=== PATIENT | male | born 1950 | race Caucasian/White ===

== ENCOUNTER 2017-08-05 12:18 | Inpatient (IN) | payer MEDICARE, MEDICAID ==
[~2017-08-05] VITALS: Ht 172.7 cm; Wt 68.6 kg
[2017-08-05] MEDS ORDERED: NITROGLYCERIN SINGLE TAB 0.4 MG SL ONE (12:50)
[2017-08-05] MEDS ORDERED: ASPIRIN 81 MG TABLET CHEW ONE (12:50)
[2017-08-05] MEDS ORDERED: SODIUM CHLORIDE FLUSH 10ML SYR IVF ONE (13:00)
[2017-08-05] MEDS ORDERED: NITROGLYCERIN SINGLE TAB 0.4 MG SL PRN (13:00)
[2017-08-05] MEDS ORDERED: ASPIRIN 81 MG TABLET CHEW PO ONE (13:00)
[2017-08-05 13:08] LABS: BASOPHILS % (AUTO) 1 % (0-1); EOSINOPHILS % (AUTO) 1 % (1-7); LYMPHOCYTES # (AUTO) 1.94 x10^3/uL (1-3.4); LYMPHOCYTES % (AUTO) 25 % (22-44); MD NO; MEAN CORPUSCULAR HEMOGLOBIN 31.4 pg (27.5-34.5); MEAN CORPUSCULAR HGB CONC 33.3 g/dL (33.2-36.2); MEAN CORPUSCULAR VOLUME 94.1 fL (81-97); MEAN PLATELET VOLUME 10.1 fL (7.4-10.4); MONOCYTES # (AUTO) 0.43 x10^3/uL (0.2-0.8); MONOCYTES % (AUTO) 6 % (2-9); NEUTROPHILS # (AUTO) 5.21 x10^3/uL (1.8-6.8); NEUTROPHILS % (AUTO) 67 % (42-75); PLATELET COUNT 239 x10^3/uL (130-400); RED BLOOD COUNT 4.98 x10^6/uL (4.38-5.82); RED CELL DISTRIBUTION WIDTH 13.6 % (9.4-14.8)
[2017-08-05 13:20] LABS: ALANINE AMINOTRANSFERASE 21 U/L (12-78); ALBUMIN 3.9 g/dL (3.4-5.0); ANION GAP 10 mmol/L (5-15); CHLORIDE 108 mmol/L (98-107)
[2017-08-05 13:25] LABS: ALKALINE PHOSPHATASE 90 U/L (45-117); BILIRUBIN,TOTAL 0.7 mg/dL (0.2-1.0); CREATININE 0.83 mg/dL (0.7-1.3); TOTAL PROTEIN 7.6 g/dL (6.4-8.2); TROPONIN I < 0.015 ng/mL (0.000-0.045)
[2017-08-05] MEDS ORDERED: OMNIPAQUE 350 MG/ML, 100ML BOTTLE ONE (14:51)
[2017-08-05] MEDS ORDERED: ASPI-515 PO (16:11)
[2017-08-05] MEDS ORDERED: METO-95 PO (16:11)
[2017-08-05] MEDS ORDERED: GABA300C10 PO ×2 (16:11)
[2017-08-05] MEDS ORDERED: TRAM50TA2 PO (16:11)
[2017-08-05] MEDS ORDERED: NITR0.4T SL (16:11)
[2017-08-05] MEDS: ENOXAPARIN 40 MG/0.4 ML SQ SCH (16:30)
[2017-08-05] MEDS ORDERED: POLYETHYLENE GLYCOL 17 GM PACKET PO PRN (16:30)
[2017-08-05] MEDS ORDERED: LABETALOL 5MG/ML, 20ML IVPush PRN (16:30)
[2017-08-05] MEDS ORDERED: hydrALAzine 20 MG/ML, 1ML IVPush PRN (16:30)
[2017-08-05] MEDS ORDERED: NITROGLYCERIN 0.4 MG BOTTLE (25 TABS) SL PRN (16:30)
[2017-08-05 19:44] LABS: TROPONIN I < 0.015 ng/mL (0.000-0.045)
[2017-08-05] MEDS: GABAPENTIN 100 MG CAPSULE PO SCH (21:00)
[2017-08-05] MEDS ORDERED: GABAPENTIN 100 MG CAPSULE PO SCH (21:00)
[2017-08-05 21:19] VITALS: BP 135/74
[2017-08-06 01:12] VITALS: BP 107/72
[2017-08-06] MEDS: GABAPENTIN 100 MG CAPSULE PO SCH ×5 (06:17→20:40)
[2017-08-06 08:02] VITALS: BP 119/78
[2017-08-06] MEDS: ASPIRIN 81 MG TABLET EC PO SCH (08:07)
[2017-08-06] MEDS: SENNA/DOCUSATE TABLET PO SCH (08:07)
[2017-08-06] MEDS: METOPROLOL SUCCINATE 100 MG TAB.ER.24H PO SCH (08:07)
[2017-08-06] MEDS ORDERED: REGADENOSON 0.4 MG/5 ML SYRINGE ONE (09:20)
[2017-08-06 14:30] VITALS: BP 107/72
[2017-08-06] MEDS: ENOXAPARIN 40 MG/0.4 ML SQ SCH (16:11)
[2017-08-06 18:39] VITALS: BP 113/71
[2017-08-07 00:19] VITALS: BP 94/60
[2017-08-07 00:28] VITALS: BP 107/64
[2017-08-07] MEDS: ACETAMINOPHEN 325 MG TABLET PO PRN ×2 (00:37→05:29)
[2017-08-07] MEDS: GABAPENTIN 100 MG CAPSULE PO SCH ×5 (06:10→20:25)
[2017-08-07 07:04] VITALS: BP 100/64
[2017-08-07] MEDS: ASPIRIN 81 MG TABLET EC PO SCH (07:39)
[2017-08-07] MEDS: METOPROLOL SUCCINATE 100 MG TAB.ER.24H PO SCH (07:43)
[2017-08-07] MEDS: SENNA/DOCUSATE TABLET PO SCH (07:43)
[2017-08-07 14:29] VITALS: BP 92/56
[2017-08-07] MEDS: ENOXAPARIN 40 MG/0.4 ML SQ SCH (16:30)
[2017-08-07 19:02] VITALS: BP 126/75
[2017-08-08 00:42] VITALS: BP 97/62
[2017-08-08] MEDS: GABAPENTIN 100 MG CAPSULE PO SCH ×5 (05:59→20:55)
[2017-08-08 06:20] VITALS: BP 113/72
[2017-08-08] MEDS: SENNA/DOCUSATE TABLET PO SCH (09:00)
[2017-08-08] MEDS: ASPIRIN 81 MG TABLET EC PO SCH (10:58)
[2017-08-08] MEDS: METOPROLOL SUCCINATE 100 MG TAB.ER.24H PO SCH (10:58)
[2017-08-08 13:17] VITALS: BP 106/67
[2017-08-08] MEDS: ENOXAPARIN 40 MG/0.4 ML SQ SCH (16:30)
[2017-08-08 19:07] VITALS: BP 102/58
[2017-08-09 01:41] VITALS: BP 92/51
[2017-08-09 02:42] VITALS: BP 113/73
[2017-08-09] MEDS: GABAPENTIN 100 MG CAPSULE PO SCH ×5 (06:00→20:59)
[2017-08-09 06:35] VITALS: BP 125/56
[2017-08-09] MEDS: SENNA/DOCUSATE TABLET PO SCH (09:00)
[2017-08-09] MEDS: METOPROLOL SUCCINATE 100 MG TAB.ER.24H PO SCH (09:00)
[2017-08-09] MEDS: ASPIRIN 81 MG TABLET EC PO SCH (10:34)
[2017-08-09 12:45] VITALS: BP 105/62
[2017-08-09] MEDS: ENOXAPARIN 40 MG/0.4 ML SQ SCH (16:16)
[2017-08-09 20:18] VITALS: BP 105/57
[2017-08-10 02:23] VITALS: BP 102/58
[2017-08-10] MEDS: GABAPENTIN 100 MG CAPSULE PO SCH ×2 (06:12→11:36)
[2017-08-10 07:42] VITALS: BP 123/76
[2017-08-10] MEDS: ASPIRIN 81 MG TABLET EC PO SCH (07:59)
[2017-08-10] MEDS: SENNA/DOCUSATE TABLET PO SCH (08:00)
[2017-08-10] MEDS: METOPROLOL SUCCINATE 100 MG TAB.ER.24H PO SCH (08:00)
== END 2017-08-10 12:31 | disposition home or self-care (01) | DRG 73 ==
LOC: ED 13:42 → OBSVTOIN 15:39 → INTOOBSV 15:39 → EDIP 15:39 → 5SO 18:46 → 3NE 08-06 17:30 → DCLOUNGE 08-10 12:25
PROVIDERS: ADMIT Internal Medicine; ATTEND Internal Medicine
DX: M54.12 Radiculopathy, cervical region (principal); E43 Unspecified severe protein-calorie malnutrition; M48.02 Spinal stenosis, cervical region; M54.16 Radiculopathy, lumbar region; Z68.23 Body mass index [BMI] 23.0-23.9, adult; I10 Essential (primary) hypertension; I25.10 Atherosclerotic heart disease of native coronary artery without angina pectoris; I25.2 Old myocardial infarction; Z79.82 Long term (current) use of aspirin; Z98.1 Arthrodesis status
CPT/HCPCS: 36415; 71045; 71275; 72052; 72141; 72146; 72148; 78452; 80053; 84484; 85025; 85379; 93005; 93017; 93306; 99285; J2785; Q9967; A9502; C9898

== ENCOUNTER 2017-11-18 09:24 | Emergency (ER) | payer MEDICARE, MEDICAID ==
[~2017-11-18] VITALS: Ht 172.7 cm; Wt 67.4 kg
[~2017-11-18 09:24] MED LIST: ASPI-515 PO; GABA300C10 PO; METO-95 PO; NITR0.4T SL; TRAM50TA2 PO
[2017-11-18] MEDS ORDERED: OXYcodone/APAP 5/325MG TABLET ONE (11:15)
[2017-11-18] MEDS ORDERED: KETOROLAC 30 MG/1 ML ONE (11:15)
[2017-11-18] MEDS ORDERED: DIAZEPAM 5 MG TABLET ONE (11:16)
[2017-11-18 11:22] VITALS: BP 136/98
[2017-11-18] MEDS ORDERED: OXYcodone/APAP 5/325MG TABLET PO ONE (11:30)
[2017-11-18] MEDS ORDERED: DIAZEPAM 5 MG TABLET PO ONE (11:30)
[2017-11-18] MEDS ORDERED: KETOROLAC 30 MG/1 ML IM ONE (11:30)
== END 2017-11-18 12:03 | disposition home or self-care (01) ==
LOC: ED 11:45
DX: M47.892 Other spondylosis, cervical region (principal); M47.894 Other spondylosis, thoracic region; M47.896 Other spondylosis, lumbar region
CPT/HCPCS: 93005; 96372; 99283; J1885

== ENCOUNTER 2018-01-21 10:35 | Emergency (ER) | payer MEDICARE, MEDICAID ==
[~2018-01-21] VITALS: Ht 172.7 cm; Wt 78.0 kg
[2018-01-21 10:40] VITALS: BP 154/83
[2018-01-21 12:01] LABS: BASOPHILS # (AUTO) 0.03 x10^3/uL (0-0.1); BASOPHILS % (AUTO) 0 % (0-1); EOSINOPHILS # (AUTO) 0.06 x10^3/uL (0-0.4); EOSINOPHILS % (AUTO) 1 % (1-7); LYMPHOCYTES # (AUTO) 1.39 x10^3/uL (1-3.4); LYMPHOCYTES % (AUTO) 18 % (22-44); MD NO; MEAN CORPUSCULAR HEMOGLOBIN 32.8 pg (27.5-34.5); MEAN CORPUSCULAR HGB CONC 34.1 g/dL (33.2-36.2); MEAN CORPUSCULAR VOLUME 96.3 fL (81-97); MEAN PLATELET VOLUME 9.9 fL (7.4-10.4); MONOCYTES # (AUTO) 0.48 x10^3/uL (0.2-0.8); MONOCYTES % (AUTO) 6 % (2-9); NEUTROPHILS # (AUTO) 5.73 x10^3/uL (1.8-6.8); NEUTROPHILS % (AUTO) 75 % (42-75); PLATELET COUNT 237 x10^3/uL (130-400); RED BLOOD COUNT 4.84 x10^6/uL (4.38-5.82); RED CELL DISTRIBUTION WIDTH 13.5 % (9.4-14.8)
[2018-01-21 12:05] LABS: ALANINE AMINOTRANSFERASE 24 U/L (12-78); ALBUMIN 4.1 g/dL (3.4-5.0); ANION GAP 11 mmol/L (5-15); CALCIUM 8.9 mg/dL (8.5-10.1); CHLORIDE 112 mmol/L (98-107); CREATININE 0.78 mg/dL (0.7-1.3)
[2018-01-21 12:08] LABS: ALKALINE PHOSPHATASE 97 U/L (45-117); BILIRUBIN,TOTAL 0.9 mg/dL (0.2-1.0); TOTAL PROTEIN 7.9 g/dL (6.4-8.2)
[2018-01-21 12:18] LABS: MICROSCOPIC NOT IND
[2018-01-21 12:25] LABS: CULTURE INDICATED? NO
[2018-01-21 14:44] LABS: AMPHETAMINE SCREEN, URINE Negative (Negative); BARBITURATE SCREEN, URINE Negative (Negative); BENZODIAZEPINE SCREEN, URINE Negative (Negative); CANNABINOID SCREEN, URINE Positive (Negative); COCAINE SCREEN, URINE Negative (Negative); METHADONE SCREEN, URINE Negative (Negative); OPIATE SCREEN, URINE Negative (Negative)
== END 2018-01-21 13:38 | disposition home or self-care (01) ==
LOC: ED 11:02
DX: R21 Rash and other nonspecific skin eruption (principal); T78.40XA Allergy, unspecified, initial encounter; X58.XXXA Exposure to other specified factors, initial encounter
CPT/HCPCS: 36415; 71045; 80053; 80307; 81003; 85025; 93005; 99285